=== PATIENT | male | born 1960 | race Two or more races ===

== ENCOUNTER → 2016-11-22 | Outpatient (CLI) | payer OTHER ==
[2016-11-22 12:26] LABS: HEMATOCRIT 43.9 % (37.9-51.0); HEMOGLOBIN 14.7 g/dL (13.5-17.0); HGB HCT DIFFERENCE 0.2; MEAN CORPUSCULAR HEMOGLOBIN 29.9 pg (27.0-33.4); MEAN CORPUSCULAR HGB CONC 33.5 g/dL (32.0-36.0); MEAN CORPUSCULAR VOLUME 89 fl (80-97); RED BLOOD COUNT 4.93 10^6/uL (4.35-5.55); RED CELL DISTRIBUTION WIDTH 13.3 % (11.5-14.0); WHITE BLOOD COUNT 5.7 10^3/uL (4.0-10.5)
[2016-11-22 12:47] LABS: APPEARANCE,URINE CLEAR; BILIRUBIN,URINE NEGATIVE (NEGATIVE); GLUCOSE, URINE NEGATIVE (NEGATIVE); KETONES,URINE NEGATIVE (NEGATIVE); LEUKOCYTE ESTERASE,URINE NEGATIVE (NEGATIVE); NITRITE,URINE NEGATIVE (NEGATIVE); PROTEIN,URINE NEGATIVE (NEGATIVE); URINE SPECIFIC GRAVITY 1.031
[2016-11-22 12:50] LABS: ANION GAP 10 (5-19); BLOOD UREA NITROGEN 26 mg/dL (7-20); CALCIUM 9.3 mg/dL (8.4-10.2); CARBON DIOXIDE 24 mmol/L (22-30); CHLORIDE 109 mmol/L (98-107); CREATININE RESULT 0.98 mg/dL (0.52-1.25); GLUCOSE 104 mg/dL (75-110); POTASSIUM 4.2 mmol/L (3.6-5.0); SODIUM 143.2 mmol/L (137-145)
--- NOTE | 2016-11-22 20:01 | EKG REPORT ---
SEVERITY:- ABNORMAL ECG - SINUS RHYTHM FIRST DEGREE AV BLOCK ABNRM R PROG, CONSIDER ASMI OR LEAD PLACEMENT NONSPECIFIC T ABNORMALITIES, INFERIOR LEADS : Confirmed by: Giselle Galloway 22-Nov-2016 20:00:59
== END ==
LOC: OD 10:56
PROVIDERS: ATTEND Orthopaedic Surgery
DX: Z01.810 Encounter for preprocedural cardiovascular examination (principal); Z01.811 Encounter for preprocedural respiratory examination; Z01.818 Encounter for other preprocedural examination; Z79.899 Other long term (current) drug therapy; M17.12 Unilateral primary osteoarthritis, left knee
CPT/HCPCS: 36415; 71020; 80048; 81001; 85027; 93005; 93010

== ENCOUNTER → 2017-03-03 | Outpatient (CLI) | payer OTHER ==
[2017-03-03 11:14] LABS: APPEARANCE,URINE CLEAR; BILIRUBIN,URINE NEGATIVE (NEGATIVE); GLUCOSE, URINE NEGATIVE (NEGATIVE); KETONES,URINE NEGATIVE (NEGATIVE); LEUKOCYTE ESTERASE,URINE NEGATIVE (NEGATIVE); NITRITE,URINE NEGATIVE (NEGATIVE); PROTEIN,URINE NEGATIVE (NEGATIVE); URINE SPECIFIC GRAVITY 1.025; UROBILINOGEN,URINE NEGATIVE mg/dL (<2.0)
[2017-03-03 11:16] LABS: ABSOLUTE EOSINOPHILS # (AUTO) 0.2 10^3/uL (0.0-0.6); ABSOLUTE LYMPHOCYTES (AUTO) 1.1 10^3/uL (0.5-4.7); ABSOLUTE MONOCYTES (AUTO) 0.4 10^3/uL (0.1-1.4); ABSOLUTE NEUT (AUTO) 3.5 10^3/uL (1.7-8.2); BASOPHILS % (AUTO) 0.9 % (0-2); EOSINOPHILS % (AUTO) 4.8 % (0-6); HEMATOCRIT 45.2 % (37.9-51.0); HEMOGLOBIN 15.1 g/dL (13.5-17.0); HGB HCT DIFFERENCE 0.1; LYMPHOCYTES % (AUTO) 20.9 % (13-45); MEAN CORPUSCULAR HEMOGLOBIN 29.7 pg (27.0-33.4); MEAN CORPUSCULAR HGB CONC 33.4 g/dL (32.0-36.0); MEAN CORPUSCULAR VOLUME 89 fl (80-97); MONOCYTES % (AUTO) 6.7 % (3-13); RED CELL DISTRIBUTION WIDTH 13.7 % (11.5-14.0); SEGMENTED NEUTROPHILS % (AUTO) 66.7 % (42-78); WHITE BLOOD COUNT 5.2 10^3/uL (4.0-10.5)
[2017-03-03 11:37] LABS: ANION GAP 10 (5-19); BLOOD UREA NITROGEN 24 mg/dL (7-20); CALCIUM 9.3 mg/dL (8.4-10.2); CARBON DIOXIDE 26 mmol/L (22-30); CHLORIDE 106 mmol/L (98-107); CREATININE RESULT 0.76 mg/dL (0.52-1.25); GLUCOSE 86 mg/dL (75-110); POTASSIUM 4.7 mmol/L (3.6-5.0); SODIUM 142.2 mmol/L (137-145)
--- NOTE | 2017-03-04 08:48 | EKG REPORT ---
SEVERITY:- ABNORMAL ECG - SINUS RHYTHM FIRST DEGREE AV BLOCK PROBABLE INFERIOR INFARCT, AGE INDETERMINATE : Confirmed by: Giselle Galloway 04-Mar-2017 08:47:19
== END ==
LOC: OD 10:15
PROVIDERS: ATTEND Orthopaedic Surgery
DX: Z01.810 Encounter for preprocedural cardiovascular examination (principal); Z01.812 Encounter for preprocedural laboratory examination; Z01.818 Encounter for other preprocedural examination
CPT/HCPCS: 36415; 80048; 81001; 85025; 93005; 93010

== ENCOUNTER 2017-05-23 05:27 | Inpatient (IN) | payer OTHER ==
--- NOTE | 2017-03-14 13:02 | RADIOLOGY REPORT (SQ) ---
EXAM DESCRIPTION: CHEST PA/LATERAL COMPLETED DATE/TIME: 03/14/2017 11:41 am REASON FOR STUDY: PRE OP COMPARISON: November 2016 EXAM PARAMETERS: NUMBER OF VIEWS: two views TECHNIQUE: Digital Frontal and Lateral radiographic views of the chest acquired. RADIATION DOSE: NA LIMITATIONS: none FINDINGS: LUNGS AND PLEURA: No opacities, masses or pneumothorax. No pleural effusion. MEDIASTINUM AND HILAR STRUCTURES: No masses or contour abnormalities. HEART AND VASCULAR STRUCTURES: Heart normal size. No evidence for failure. BONES: No acute findings. HARDWARE: None in the chest. OTHER: No other significant finding. IMPRESSION: NO SIGNIFICANT RADIOGRAPHIC FINDING IN THE CHEST. TECHNICAL DOCUMENTATION: JOB ID: [id number] [employer]- All Rights Reserved
[2017-05-20 10:24] LABS: APPEARANCE,URINE CLEAR; BILIRUBIN,URINE NEGATIVE (NEGATIVE); GLUCOSE, URINE NEGATIVE (NEGATIVE); KETONES,URINE NEGATIVE (NEGATIVE); LEUKOCYTE ESTERASE,URINE NEGATIVE (NEGATIVE); NITRITE,URINE NEGATIVE (NEGATIVE); PROTEIN,URINE NEGATIVE (NEGATIVE); URINE SPECIFIC GRAVITY 1.028; UROBILINOGEN,URINE NEGATIVE mg/dL (<2.0)
[2017-05-20 11:03] LABS: ABSOLUTE EOSINOPHILS # (AUTO) 0.3 10^3/uL (0.0-0.6); ABSOLUTE LYMPHOCYTES (AUTO) 1.1 10^3/uL (0.5-4.7); ABSOLUTE MONOCYTES (AUTO) 0.4 10^3/uL (0.1-1.4); BASOPHILS % (AUTO) 0.8 % (0-2); EOSINOPHILS % (AUTO) 5.9 % (0-6); HEMATOCRIT 39.2 % (37.9-51.0); HEMOGLOBIN 12.9 g/dL (13.5-17.0); HGB HCT DIFFERENCE -0.5; LYMPHOCYTES % (AUTO) 23.1 % (13-45); MEAN CORPUSCULAR HEMOGLOBIN 27.7 pg (27.0-33.4); MEAN CORPUSCULAR HGB CONC 32.8 g/dL (32.0-36.0); MEAN CORPUSCULAR VOLUME 85 fl (80-97); MONOCYTES % (AUTO) 8.2 % (3-13); RED BLOOD COUNT 4.65 10^6/uL (4.35-5.55); RED CELL DISTRIBUTION WIDTH 14.5 % (11.5-14.0); WHITE BLOOD COUNT 4.9 10^3/uL (4.0-10.5)
[2017-05-20 11:27] LABS: ANION GAP 11 (5-19); BLOOD UREA NITROGEN 14 mg/dL (7-20); CARBON DIOXIDE 26 mmol/L (22-30); CHLORIDE 105 mmol/L (98-107); GLUCOSE 66 mg/dL (75-110); POTASSIUM 4.4 mmol/L (3.6-5.0); SODIUM 141.5 mmol/L (137-145)
--- NOTE | 2017-05-20 18:38 | EKG REPORT ---
SEVERITY:- NORMAL ECG - SINUS RHYTHM : Confirmed by: Gadiel Manzano MD 20-May-2017 18:38:04
[~2017-05-23 05:27] MED LIST: BUPIVACAINE INJ/PF LIPOSOME/PF 266 MG/20 ML SDV IJ PRN; CEFAZOLIN INJ 1 GM VIAL IV PRN; IBUPROFEN 800 MG/NS 250 ML IV PRN; LACTATED RINGERS 1000 ML IV PRN; LANSOPRAZOLE 15 MG TAB.RAP.DR PO PRN; OXYCODONE HCL SR 10 MG TABLET PO PRN; SCOPOLAMINE HYDROBROMIDE 1.5 MG PATCH.TD72 TOP PRN; VANCOMYCIN HCL 1,000 MG in DEXTROSE 5%-WATER 250 ML IV PRN
[2017-05-23] MEDS ORDERED: THROMBIN (BOVINE) 5000 UNIT EPITAXIS KIT ONE (06:47)
[2017-05-23] MEDS ORDERED: THROMBIN (BOVINE) TOPICAL 20000 UNIT VIAL ONE (06:47)
[2017-05-23] MEDS ORDERED: BUPIVACAINE INJ/PF LIPOSOME/PF 266 MG/20 ML SDV ONE (06:48)
[2017-05-23] MEDS ORDERED: MIDAZOLAM 2 MG/2 ML INJ ONE (07:11)
[2017-05-23] MEDS ORDERED: FENTANYL CITRATE INJ/PF 250 MCG/5 ML AMPULE ONE (07:11)
[2017-05-23] MEDS ORDERED: TRANEXAMIC ACID INJ/PF 1,000 MG/10 ML SDV IV ONE ×3 (07:11→10:30)
[2017-05-23] MEDS ORDERED: PROPOFOL INJ 200 MG/20 ML VIAL IV ONE (07:11)
[2017-05-23] MEDS ORDERED: FENTANYL CITRATE INJ/PF 100 MCG/2 ML AMPUL IV PRN ×3 (07:59)
[2017-05-23] MEDS ORDERED: MORPHINE SULFATE 10 MG/ML INJ IV PRN ×3 (07:59→08:38)
[2017-05-23] MEDS ORDERED: PROMETHAZINE HCL INJ 25 MG/1 ML VIAL IV PRN ×2 (07:59)
[2017-05-23] MEDS ORDERED: MEPERIDINE HCL/PF INJ 25 MG/1 ML DISP.SYRIN IV PRN (07:59)
[2017-05-23] MEDS ORDERED: OXYCODONE-ACETAMINOPHEN 5-325 MG TABLET PO PRN ×2 (07:59)
[2017-05-23] MEDS ORDERED: DIPHENHYDRAMINE HCL 50 MG/ML VIAL IV PRN ×2 (07:59→08:38)
[2017-05-23] MEDS ORDERED: MORPHINE SULFATE 10 MG/ML INJ IM PRN (08:38)
[2017-05-23] MEDS ORDERED: RINGERS SOLUTION,LACTATED 1,000 ML IV PRN (08:38)
[2017-05-23] MEDS ORDERED: OXYCODONE HCL IR 5 MG TABLET PO PRN (08:38)
[2017-05-23] MEDS ORDERED: ZOLPIDEM TARTRATE 5 MG TABLET PO PRN (08:38)
[2017-05-23] MEDS ORDERED: ONDANSETRON 4 MG TAB.RAPDIS PO PRN (08:38)
[2017-05-23] MEDS ORDERED: ACETAMINOPHEN 325 MG TABLET PO PRN (08:38)
[2017-05-23] MEDS ORDERED: ONDANSETRON HCL INJ/PF 4 MG/2 ML SDV IV PRN (08:38)
[2017-05-23] MEDS ORDERED: MAG HYDROX/AL HYDROX/SIMETH SUSP 30 ML UDCUP PO PRN (08:38)
--- NOTE | 2017-05-23 08:38 | Operative Report ---
Operative Report DATE OF SURGERY: 05/23/17 PREOPERATIVE DIAGNOSIS: Left knee arthritis OPERATION: Left knee arthroplasty SURGEON: NIKKI SCOTT 1ST SOIL CHECKER: AFSHIN GUZMAN ANESTHESIA: Spinal TISSUE REMOVED OR ALTERED: Bone to pathology ESTIMATED BLOOD LOSS: 100 PROCEDURE: Implants used: Femur: Jose triathlon #6 CR femur Tibia: 6 tibia Tibial liner: 9 mm CS insert Patella: 38 mm oval patella Procedure with the patient supine on the operating table the left the limb is prepped and draped in a sterile fashion. The limb was elevated for exsanguination and the tourniquet inflated to 280 torr. A standard midline median parapatellar approach the knee is taken. Access is gained to the femoral canal through the intercondylar notch. Intramedullary alignment instrumentation used to resect 10 mm of distal femur in 5 of valgus. Sizing guide indicated a size 6 femur. Appropriate cutting jig is then used to fashion anterior posterior and chamfer cuts. A trial reduction femurs performed and this is judged to be adequate. Attention was next turned to the tibia. Using an extra medullary alignment system 9 millimeters was resected off the lateral tibial plateau. This is sized to a size 6 tibia. A trial reduction was now performed with a 6 femur and a 6 tibia using a 9 millimeters spacer. It is full extension and central patellofemoral tracking. The articular surface the patella was next resected using an oscillating saw. All trial implants were removed. Polymethylmethacrylate is mixed and used to cement the above implants in place. On adequate curing the cement excess cement was removed the tourniquet was deflated hemostasis obtained the wound is then closed in layers using interrupted Vicryl followed by yue. A sterile compressive dressing was applied and the patient returned to recovery room in satisfactory condition.
--- NOTE | 2017-05-23 10:18 | RADIOLOGY REPORT (SQ) ---
EXAM DESCRIPTION: KNEE LEFT 2 VIEWS COMPLETED DATE/TIME: 05/23/2017 9:33 am REASON FOR STUDY: Post OP -Long Cassette in PACU M17.12 UNILATERAL PRIMARY OSTEOARTHRITIS, LEFT KNE E COMPARISON: None. NUMBER OF VIEWS: 2 view(s). TECHNIQUE: Digital radiographic images of the left knee post-procedure. LIMITATIONS: None. FINDINGS: BONES: No worrisome or unexpected findings post-procedure. DEVICE: Patient is status post left total knee replacement. The prosthesis appears well seated in th e distal femur and proximal tibia in the projections obtained. SOFT TISSUES: No worrisome findings. Expected postoperative soft tissue changes. IMPRESSION: SATISFACTORY POSTOPERATIVE LEFT KNEE. TECHNICAL DOCUMENTATION: JOB ID: [id number] [employer]- All Rights Reserved
[2017-05-23] MEDS ORDERED: GLYCOPYRROLATE INJ 0.4 MG/2 ML VIAL ONE (11:59)
[2017-05-23] MEDS ORDERED: ONDANSETRON HCL INJ/PF 4 MG/2 ML SDV ONE (11:59)
[2017-05-23] MEDS: IBUPROFEN 800 MG in NORMAL SALINE 250 ML IV SCH ×2 (14:21→22:53)
[2017-05-23] MEDS: MORPHINE SULFATE 10 MG/ML INJ IV PRN ×2 (14:22→20:55)
[2017-05-23] MEDS: SENNOSIDES/DOCUSATE 8.6-50 MG 1 EACH TABLET PO SCH (17:42)
[2017-05-23] MEDS: OXYCODONE HCL SR 10 MG TABLET PO SCH (17:42)
[2017-05-23] MEDS ORDERED: VANCOMYCIN HCL 1,000 MG in DEXTROSE 5%-WATER 250 ML IV ONE (21:00)
[2017-05-23] MEDS ORDERED: RIVAROXABAN 10 MG TABLET PO SCH (22:00)
[2017-05-23] MEDS: PREGABALIN 75 MG CAPSULE PO SCH (22:53)
[2017-05-24] MEDS: IBUPROFEN 800 MG in NORMAL SALINE 250 ML IV SCH (05:19)
[2017-05-24] MEDS: OXYCODONE HCL SR 10 MG TABLET PO SCH (05:19)
[2017-05-24] MEDS ORDERED: LANSOPRAZOLE 30 MG TAB.RAP.DR PO SCH (06:00)
[2017-05-24 06:20] LABS: HEMATOCRIT 35.1 % (37.9-51.0); HEMOGLOBIN 11.7 g/dL (13.5-17.0); MEAN CORPUSCULAR HEMOGLOBIN 27.7 pg (27.0-33.4); MEAN CORPUSCULAR HGB CONC 33.3 g/dL (32.0-36.0); MEAN CORPUSCULAR VOLUME 83 fl (80-97); RED BLOOD COUNT 4.23 10^6/uL (4.35-5.55); RED CELL DISTRIBUTION WIDTH 14.4 % (11.5-14.0); WHITE BLOOD COUNT 7.2 10^3/uL (4.0-10.5)
[2017-05-24 06:31] LABS: ANION GAP 7 (5-19); BLOOD UREA NITROGEN 12 mg/dL (7-20); CALCIUM 8.3 mg/dL (8.4-10.2); CARBON DIOXIDE 25 mmol/L (22-30); CHLORIDE 103 mmol/L (98-107); CREATININE RESULT 0.75 mg/dL (0.52-1.25); GLUCOSE 129 mg/dL (75-110); SODIUM 134.8 mmol/L (137-145)
--- NOTE | 2017-05-24 06:56 | PDOC DISCHARGE SUMMARY ---
General - Admit/Disc Date/PCP Admission Date/Primary Care Provider: 05/23/17 05:27 MIGUELANGEL MCCONNELL III, MD Discharge Date: 05/24/17 - Additional Information Resuscitation Status: Full Code Discharge Diet: As Tolerated, Regular Discharge Activity: Activity As Tolerated, No Driving, No tub bath Home Medications: Amoxicillin 500 mg PO BID 05/20/17 Clarithromycin [Biaxin 500 mg Tablet] 1 tab PO Q12 05/20/17 Omeprazole Magnesium [Prilosec Otc] 20 mg PO DAILY 05/20/17 Rivaroxaban [Xarelto 10 mg Tablet] 10 mg PO QHS tablet 05/24/17 History of Present Illness History of Present Illness: RHEA HERNADEZ is a 56 year old male progressive left knee pain and functional disability secondary osteoarthritis. Patient is admitted for elective left knee arthroplasty. Hospital Course Hospital Course: Patient is admitted through the operating room where he undergoes uncomplicated left knee arthroplasty. Is returned to the floor in satisfactory condition. He ambulates 350 feet on the day of surgery with physical therapy. His dressing is changed on postop day 1. The underlying picot dressing is clean dry and intact. There is minimal pedal edema. Distal neurovascular examination is intact. Physical Exam Vital Signs: Temp Pulse Resp BP Pulse Ox 37.1 C 93 17 104/73 94 05/24/17 03:53 05/24/17 03:53 05/24/17 03:53 05/24/17 03:53 05/24/17 03:53 Intake & Output 05/22/17 05/23/17 05/24/17 06:59 06:59 06:59 Intake Total 0 7603 Output Total 4045 Balance 0 3558 Weight 83.91 kg General appearance: PRESENT: no acute distress Head exam: PRESENT: normocephalic Respiratory exam: PRESENT: unlabored Cardiovascular exam: PRESENT: RRR Pulses: PRESENT: +1 pedal pulses bilateral Vascular exam: PRESENT: normal capillary refill GI/Abdominal exam: PRESENT: soft Rectal exam: PRESENT: deferred Extremities exam: PRESENT: other - Left knee picot dressing is clean dry and intact. Distal neurovascular examination is intact. Neurological exam: PRESENT: alert, awake, oriented to person, oriented to place , oriented to time, oriented to situation. ABSENT: motor sensory deficit Psychiatric exam: PRESENT: appropriate affect, normal mood. ABSENT: homicidal ideation, suicidal ideation Skin exam: PRESENT: dry, intact, warm. ABSENT: cyanosis, rash Results Laboratory Results: 05/24/17 05:36 05/24/17 05:36 05/24/17 05/24/17 05:36 05:36 WBC 7.2 RBC 4.23 L Hgb 11.7 L Hct 35.1 L MCV 83 MCH 27.7 MCHC 33.3 RDW 14.4 H Plt Count 278 Sodium 134.8 L Potassium 4.0 Chloride 103 Carbon Dioxide 25 Anion Gap 7 BUN 12 Creatinine 0.75 Est GFR ( Amer) > 60 Est GFR (Non-Af Amer) > 60 Glucose 129 H Calcium 8.3 L Impressions: Chest X-Ray 03/14/17 11:19 IMPRESSION: NO SIGNIFICANT RADIOGRAPHIC FINDING IN THE CHEST. Knee X-Ray 05/23/17 08:39 IMPRESSION: SATISFACTORY POSTOPERATIVE LEFT KNEE. Status: Imported from PACS Plan Discharge Plan: Patient to be discharged home with home health nursing, home health physical therapy, wheeled walker, bedside commode. Visiting nurse service to change left knee picot dressing on postop day 7 and replaced with an OpSite. Follow- up will be with Dr. Craig and [facility] for surgery in 2 weeks for staple removal.
[2017-05-24] MEDS: SENNOSIDES/DOCUSATE 8.6-50 MG 1 EACH TABLET PO SCH (09:08)
[2017-05-24] MEDS: PREGABALIN 75 MG CAPSULE PO SCH (09:08)
[2017-05-24] MEDS ORDERED: PRENATAL VITAMIN W-O CA NO5/FE FUMARATE/FA CAPSULE PO SCH (10:00)
[2017-05-24 11:17] VITALS: BP 101/67
== END 2017-05-24 11:55 | disposition home health service (06) | DRG 470 ==
LOC: INOR 05:27 → 4S 10:32
PROVIDERS: ADMIT Orthopaedic Surgery; ATTEND Orthopaedic Surgery
PROC: 0SRD0J9 Replacement of Left Knee Joint with Synthetic Substitute, Cemented, Open Approach (ICD-10-PCS; principal; 2017-05-23 07:30)
DX: M17.12 Unilateral primary osteoarthritis, left knee (principal); Z83.3 Family history of diabetes mellitus; Z80.9 Family history of malignant neoplasm, unspecified
CPT/HCPCS: 01402; 36415; 71020; 80048; 81001; 85025; 85027; 88305; 88311; 93005; 93010; 94799; C2625; C9290; J0690; J1741; J2250; J2270; J2405; J2704; J3010; J3370; J3490; J7050; J7060

== ENCOUNTER 2017-05-27 04:53 | Emergency (ER) | payer OTHER ==
[2017-05-27] MEDS ORDERED: HYDROMORPHONE HCL INJ/PF 2 MG/ML AMPULE IV ONE (05:18)
[2017-05-27] MEDS ORDERED: NORMAL SALINE 500 ML IV ONE (05:18)
--- NOTE | 2017-05-27 05:18 | ER Document Report ---
ED Medical Screen (RME) - General Chief Complaint: Post Surgical Pain Stated Complaint: SWEELING AND PAIN IN LEG Time Seen by Provider: 05/27/17 05:06 TRAVEL OUTSIDE OF THE [place] IN LAST 30 DAYS: Yes - Jamie Hansonpilar 05/12/17 COUNTRY TRAVELED TO/FROM: [place] - [facility] Notes: 05/27/17 05:15 56-year-old male underwent left total knee replacement by Dr. Craig on Tuesday, May 23 which was uneventful. He has noticed increased swelling and pain of the left lower extremity with redness that is becoming more proximal as well having more distal swelling and redness. He has no history of diabetes. He has been on antibiotics for H pylori approximately 1 week beforehand. No chest pain or breathing difficulty. He has noted some serous drainage as well laterally from outside the dressing. No fever or other systemic symptoms. Patient is currently taking Xarelto. Of note, the patient states she has not had a bowel movement since the day prior to surgery. Brief exam shows diffuse edema extending from the knee distally and proximally with warmth and erythema extending toward the proximal thigh region as well. - Related Data Allergies/Adverse Reactions: No Known Allergies Allergy (Unverified 12/07/16 12:51) Past Medical History - Past Medical History Cardiac Medical History: Denies: Hx Pulmonary Embolism Pulmonary Medical History: Reports: Hx Sleep Apnea - mild, has CPAP doesn't use Denies: Hx Asthma, Hx Bronchitis, Hx COPD, Hx Pneumonia, Hx Respiratory Failure, Hx Tuberculosis Renal/ Medical History: Denies: Hx Benign Prostatic Hyperplasia, Hx End Stage Renal Disease, Hx Kidney Stones, Hx Peritoneal Dialysis Malignancy Medical History: Denies Hx Lung Cancer GI Medical History: Denies: Hx Crohn's Disease, Hx Gastroesophageal Reflux Disease, Hx Hiatal Hernia, Hx Irritable Bowel, Hx Liver Failure, Hx Ulcer Musculoskeltal Medical History: Reports Hx Arthritis - osteo, Denies Hx Fibromyalgia, Denies Hx Muscular Dystrophy Traumatic Medical History: Denies: Hx Fractures Past Surgical History: Reports: Hx Herniorrhaphy - umbilical, right groin with mesh. Denies: Hx Appendectomy, Hx Bowel Surgery, Hx Cholecystectomy, Hx Colostomy, Hx Coronary Artery Bypass Graft, Hx Gastric Bypass Surgery, Hx Pacemaker, Hx Tonsillectomy Physical Exam - Vital signs Vitals: Temp Pulse Resp BP Pulse Ox 98 F 109 H 20 125/81 93 08/25/17 04:54 05/27/17 04:54 05/27/17 04:54 05/27/17 04:54 05/27/17 04:54 Course - Vital Signs Vital signs: Temp Pulse Resp BP Pulse Ox 98 F 109 H 20 125/81 93 05/27/17 04:54 05/27/17 04:54 05/27/17 04:54 05/27/17 04:54 05/27/17 04:54
--- NOTE | 2017-05-27 07:41 | ER Document Report ---
ED General - General Chief Complaint: Post Surgical Pain Stated Complaint: SWEELING AND PAIN IN LEG Time Seen by Provider: 05/27/17 05:06 TRAVEL OUTSIDE OF THE [place] IN LAST 30 DAYS: Yes - Lazaro Hanson 05/12/17 COUNTRY TRAVELED TO/FROM: [facility] Patient complains to provider of: Left leg swelling Notes: Patient coming in postop day 5 from knee replacement surgery states increased swelling and pain to the left knee. Also states increased redness and some mild drainage. Patient denies any other injuries to his leg states otherwise at this time his pain is controlled denies any fevers chills or night sweats. - Related Data Allergies/Adverse Reactions: No Known Allergies Allergy (Unverified 12/07/16 12:51) Past Medical History - Social History Smoking Status: Unknown if Ever Smoked Family History: Reviewed & Not Pertinent Patient has suicidal ideation: No Patient has homicidal ideation: No - Past Medical History Cardiac Medical History: Denies: Hx Pulmonary Embolism Pulmonary Medical History: Reports: Hx Sleep Apnea - mild, has CPAP doesn't use Denies: Hx Asthma, Hx Bronchitis, Hx COPD, Hx Pneumonia, Hx Respiratory Failure, Hx Tuberculosis Renal/ Medical History: Denies: Hx Benign Prostatic Hyperplasia, Hx End Stage Renal Disease, Hx Kidney Stones, Hx Peritoneal Dialysis Malignancy Medical History: Denies Hx Lung Cancer GI Medical History: Denies: Hx Crohn's Disease, Hx Gastroesophageal Reflux Disease, Hx Hiatal Hernia, Hx Irritable Bowel, Hx Liver Failure, Hx Ulcer Musculoskeltal Medical History: Reports Hx Arthritis - osteo, Denies Hx Fibromyalgia, Denies Hx Muscular Dystrophy Traumatic Medical History: Denies: Hx Fractures Past Surgical History: Reports: Hx Herniorrhaphy - umbilical, right groin with mesh. Denies: Hx Appendectomy, Hx Bowel Surgery, Hx Cholecystectomy, Hx Colostomy, Hx Coronary Artery Bypass Graft, Hx Gastric Bypass Surgery, Hx Pacemaker, Hx Tonsillectomy Review of Systems - Review of Systems Constitutional: No symptoms reported EENT: No symptoms reported Cardiovascular: No symptoms reported Respiratory: No symptoms reported Gastrointestinal: No symptoms reported Genitourinary: No symptoms reported Male Genitourinary: No symptoms reported Musculoskeletal: Leg swelling Skin: No symptoms reported Hematologic/Lymphatic: No symptoms reported Neurological/Psychological: No symptoms reported Physical Exam - Vital signs Vitals: Temp Pulse Resp BP Pulse Ox 98 F 109 H 20 125/81 93 05/27/17 04:54 05/27/17 04:54 05/27/17 04:54 05/27/17 04:54 05/27/17 04:54 Interpretation: Normal - General General appearance: Appears well, Alert - HEENT Head: Normocephalic, Atraumatic Eyes: Normal Pupils: PERRL - Respiratory Respiratory status: No respiratory distress Chest status: Nontender Breath sounds: Normal Chest palpation: Normal - Cardiovascular Rhythm: Regular Heart sounds: Normal auscultation Murmur: No - Abdominal Inspection: Normal Distension: No distension Bowel sounds: Normal Tenderness: Nontender Organomegaly: No organomegaly - Back Back: Normal, Nontender - Extremities General upper extremity: Normal inspection, Nontender, Normal color, Normal ROM , Normal temperature General lower extremity: Nontender, Other - Right leg unaffected. Patient's left leg postsurgical with dressing intact slight serosanguineous drainage no purulent drainage is seen there is some mild erythema from the knee up to the mid thigh the medial region.. No: Normal inspection - Neurological Neuro grossly intact: Yes Cognition: Normal Orientation: AAOx4 Hoffman Coma Scale Eye Opening: Spontaneous Hoffman Coma Scale Verbal: Oriented Hoffman Coma Scale Motor: Obeys Commands Hoffman Coma Scale Total: 15 Speech: Normal Motor strength normal: LUE, RUE, LLE, RLE Sensory: Normal - Psychological Associated symptoms: Normal affect, Normal mood - Skin Skin Temperature: Warm Skin Moisture: Dry Skin Color: Normal Course - Re-evaluation Re-evalutation: 05/27/17 13:26 Doppler is negative lab work shows no leukocytosis or bandemia. Discussed with orthopedics physical education professor will establish the patient with a follow-up outpatient appointment either today or Tuesday. Agrees with discharge - Vital Signs Vital signs: Temp Pulse Resp BP Pulse Ox 97.8 F 98 16 129/85 H 98 05/27/17 11:05 05/27/17 11:05 05/27/17 11:05 05/27/17 11:05 05/27/17 11:05 - Laboratory Result Diagrams: 05/27/17 07:20 05/27/17 07:20 Laboratory results interpreted by me: 05/27/17 05/27/17 07:20 07:20 RBC 3.83 L Hgb 10.6 L Hct 31.2 L RDW 14.5 H Lymphocytes % 11.3 L Sodium 136.2 L Calcium 8.2 L Discharge - Discharge Clinical Impression: Left leg swelling Condition: Good Disposition: HOME, SELF-CARE Instructions: Dependent Edema ([facility]) Additional Instructions: Please continue to elevate your leg. I discussed her case with the orthopedic group there will call you with a follow-up appointment which may be today or Tuesday. Return to ER if you develop fevers or worsening symptoms Referrals: LIU MCCONNELL MD [Primary Care Provider] - Follow up as needed
[2017-05-27 07:42] LABS: ABSOLUTE EOSINOPHILS # (AUTO) 0.1 10^3/uL (0.0-0.6); ABSOLUTE LYMPHOCYTES (AUTO) 0.9 10^3/uL (0.5-4.7); ABSOLUTE MONOCYTES (AUTO) 0.8 10^3/uL (0.1-1.4); BASOPHILS % (AUTO) 0.6 % (0-2); EOSINOPHILS % (AUTO) 1.7 % (0-6); HEMATOCRIT 31.2 % (37.9-51.0); HEMOGLOBIN 10.6 g/dL (13.5-17.0); HGB HCT DIFFERENCE 0.6; LYMPHOCYTES % (AUTO) 11.3 % (13-45); MEAN CORPUSCULAR HEMOGLOBIN 27.7 pg (27.0-33.4); MEAN CORPUSCULAR VOLUME 82 fl (80-97); MONOCYTES % (AUTO) 10.3 % (3-13); RED BLOOD COUNT 3.83 10^6/uL (4.35-5.55); RED CELL DISTRIBUTION WIDTH 14.5 % (11.5-14.0); SEGMENTED NEUTROPHILS % (AUTO) 76.1 % (42-78); WHITE BLOOD COUNT 7.8 10^3/uL (4.0-10.5)
[2017-05-27 07:57] LABS: ANION GAP 7 (5-19); BLOOD UREA NITROGEN 11 mg/dL (7-20); CALCIUM 8.2 mg/dL (8.4-10.2); CARBON DIOXIDE 29 mmol/L (22-30); CHLORIDE 100 mmol/L (98-107); CREATININE RESULT 0.73 mg/dL (0.52-1.25); GLUCOSE 109 mg/dL (75-110); POTASSIUM 3.7 mmol/L (3.6-5.0); SODIUM 136.2 mmol/L (137-145)
--- NOTE | 2017-05-27 09:34 | RADIOLOGY REPORT (SQ) ---
EXAM DESCRIPTION: VENOUS UNILATERAL LOWER COMPLETED DATE/TIME: 05/27/2017 9:22 am REASON FOR STUDY: LLE Pain and swelling post TKR COMPARISON: None. TECHNIQUE: Dynamic and static sharma scale and color images acquired of the left leg venous system. Se lected spectral images acquired with additional compression and augmentation maneuvers. The contralat eral common femoral vein and saphenofemoral junction were also imaged. Images stored on PACS. LIMITATIONS: None. FINDINGS: COMMON FEMORAL: Normal phasicity, compression and augmentation. No visualized echogenic ma terial on sharma scale. No defects on color images. FEMORAL: Normal compression and augmentation. No visualized echogenic material on sharma scale. No defe cts on color images. POPLITEAL: Normal compression, augmentation. No visualized echogenic material on sharma scale. No defec ts on color images. CALF VESSELS: Normal compression, augmentation. No visualized echogenic material on sharma scale. No de fects on color images. GSV and SSV: Normal compression, augmentation. No visualized echogenic material on sharma scale. No def ects on color images. ANY DEEP VENOUS INSUFFICIENCY: Not evaluated. ANY EVIDENCE OF POPLITEAL CYST: No. OTHER: No other significant finding. CONTRALATERAL COMMON FEMORAL VEIN AND SAPHENOFEMORAL JUNCTION: Normal phasicity, compression and augmentation. No visualized echogenic material on sharma scale. No de fects on color images. IMPRESSION: NO EVIDENCE OF DVT OR SVT IN THE LEFT LEG. TECHNICAL DOCUMENTATION: JOB ID: [id number] [employer]- All Rights Reserved
[2017-05-27 11:05] VITALS: BP 129/85
== END 2017-05-27 11:05 | disposition home or self-care (01) ==
LOC: ER 04:53
DX: M79.89 Other specified soft tissue disorders (principal); M25.562 Pain in left knee; Z96.652 Presence of left artificial knee joint
CPT/HCPCS: 99284; 96361; 96374; 36415; 87040; 85025; 80048; 93971; J1170; J7040

== ENCOUNTER → 2017-08-30 | Outpatient (CLI) | payer OTHER ==
--- NOTE | 2017-08-30 11:13 | RADIOLOGY REPORT (SQ) ---
EXAM DESCRIPTION: CHEST PA/LATERAL COMPLETED DATE/TIME: 08/30/2017 10:48 am REASON FOR STUDY: PRE OP COMPARISON: 03/14/2017 EXAM PARAMETERS: NUMBER OF VIEWS: two views TECHNIQUE: Digital Frontal and Lateral radiographic views of the chest acquired. RADIATION DOSE: NA LIMITATIONS: none FINDINGS: LUNGS AND PLEURA: No opacities, masses or pneumothorax. No pleural effusion. MEDIASTINUM AND HILAR STRUCTURES: No masses or contour abnormalities. HEART AND VASCULAR STRUCTURES: Heart normal size. No evidence for failure. BONES: No acute findings. HARDWARE: None in the chest. OTHER: No other significant finding. IMPRESSION: NO SIGNIFICANT RADIOGRAPHIC FINDING IN THE CHEST. TECHNICAL DOCUMENTATION: JOB ID: [id number] [employer]- All Rights Reserved
[2017-08-30 11:21] LABS: ABSOLUTE EOSINOPHILS # (AUTO) 0.1 10^3/uL (0.0-0.6); ABSOLUTE LYMPHOCYTES (AUTO) 1.1 10^3/uL (0.5-4.7); ABSOLUTE MONOCYTES (AUTO) 0.3 10^3/uL (0.1-1.4); ABSOLUTE NEUT (AUTO) 3.6 10^3/uL (1.7-8.2); BASOPHILS % (AUTO) 0.8 % (0-2); EOSINOPHILS % (AUTO) 2.2 % (0-6); HEMATOCRIT 43.3 % (37.9-51.0); HEMOGLOBIN 14.3 g/dL (13.5-17.0); LYMPHOCYTES % (AUTO) 21.4 % (13-45); MEAN CORPUSCULAR HEMOGLOBIN 26.6 pg (27.0-33.4); MEAN CORPUSCULAR VOLUME 81 fl (80-97); MONOCYTES % (AUTO) 6.6 % (3-13); PLATELET COUNT 275 10^3/uL (150-450); RED BLOOD COUNT 5.37 10^6/uL (4.35-5.55); RED CELL DISTRIBUTION WIDTH 17.6 % (11.5-14.0); TOTAL CELLS COUNTED % (AUTO) 100 %; WHITE BLOOD COUNT 5.3 10^3/uL (4.0-10.5)
[2017-08-30 11:22] LABS: APPEARANCE,URINE CLEAR; BILIRUBIN,URINE NEGATIVE (NEGATIVE); COLOR,URINE YELLOW; GLUCOSE, URINE NEGATIVE (NEGATIVE); KETONES,URINE NEGATIVE (NEGATIVE); LEUKOCYTE ESTERASE,URINE NEGATIVE (NEGATIVE); NITRITE,URINE NEGATIVE (NEGATIVE); PROTEIN,URINE NEGATIVE (NEGATIVE); URINE SPECIFIC GRAVITY 1.032; UROBILINOGEN,URINE NEGATIVE mg/dL (<2.0)
[2017-08-30 11:50] LABS: ANION GAP 11 (5-19); BLOOD UREA NITROGEN 17 mg/dL (7-20); CALCIUM 9.1 mg/dL (8.4-10.2); CARBON DIOXIDE 28 mmol/L (22-30); CHLORIDE 104 mmol/L (98-107); GLUCOSE 88 mg/dL (75-110); POTASSIUM 4.9 mmol/L (3.6-5.0)
--- NOTE | 2017-08-30 13:21 | EKG REPORT ---
SEVERITY:- ABNORMAL ECG - SINUS RHYTHM FIRST DEGREE AVB. POOR R PROGRESSION ANTERIOR LEADS NONSPECIFIC ST-T CHANGES- INFERIOR LEADS : Confirmed by: Gadiel Manzano MD 30-Aug-2017 13:21:08
== END ==
LOC: OD 10:08
PROVIDERS: ATTEND Orthopaedic Surgery
DX: Z01.818 Encounter for other preprocedural examination (principal); M16.11 Unilateral primary osteoarthritis, right hip
CPT/HCPCS: 36415; 71020; 80048; 81001; 85025; 93005; 93010

== ENCOUNTER 2017-09-12 07:59 | Inpatient (IN) | payer OTHER ==
[~2017-09-12 07:59] MED LIST changes: -BUPIVACAINE INJ/PF LIPOSOME/PF 266 MG/20 ML SDV IJ PRN; +BUPIVACAINE INJ/PF LIPOSOME/PF 266 MG/20 ML SDV INJ PRN; +BUPIVACAINE INJ/PF LIPOSOME/PF 266 MG/20 ML SDV ONE; -CEFAZOLIN INJ 1 GM VIAL IV PRN; +IBUPROFEN 800 MG in NORMAL SALINE 250 ML IV PRN; -IBUPROFEN 800 MG/NS 250 ML IV PRN; +LIDOCAINE 0.5% INJ-PF (5 MG/ML) 50 ML SDV SUBCUT PRN; +ONDANSETRON HCL INJ/PF 4 MG/2 ML SDV IV PRN; -SCOPOLAMINE HYDROBROMIDE 1.5 MG PATCH.TD72 TOP PRN; +THROMBIN (BOVINE) 5000 UNIT EPITAXIS KIT ONE; +THROMBIN (BOVINE) TOPICAL 20000 UNIT VIAL ONE; +TRANEXAMIC ACID INJ/PF 1,000 MG/10 ML SDV IV PRN
[2017-09-12] MEDS ORDERED: CEFAZOLIN INJ 1 GM VIAL ONE (08:17)
[2017-09-12] MEDS ORDERED: FENTANYL CITRATE INJ/PF 100 MCG/2 ML AMPUL ONE (10:13)
[2017-09-12] MEDS ORDERED: MIDAZOLAM 2 MG/2 ML INJ ONE (10:13)
[2017-09-12] MEDS ORDERED: EPHEDRINE SULFATE INJ 50 MG/1 ML AMPULE ONE (10:13)
[2017-09-12] MEDS ORDERED: ACETAMINOPHEN 100 ML IV ONE ×2 (10:14→18:00)
[2017-09-12] MEDS ORDERED: TRANEXAMIC ACID INJ/PF 1,000 MG/10 ML SDV IV ONE ×2 (10:14→14:00)
[2017-09-12] MEDS ORDERED: DEXMEDETOMIDINE INJ 80 MCG/20 ML VIAL IV ONE (10:14)
[2017-09-12] MEDS ORDERED: PROPOFOL INJ 200 MG/20 ML VIAL IV ONE (10:14)
[2017-09-12] MEDS ORDERED: MORPHINE SULFATE 10 MG/ML INJ IV PRN ×4 (11:20→11:55)
[2017-09-12] MEDS ORDERED: MEPERIDINE HCL/PF INJ 25 MG/1 ML DISP.SYRIN IV PRN (11:20)
[2017-09-12] MEDS ORDERED: ONDANSETRON HCL INJ/PF 4 MG/2 ML SDV IV PRN ×3 (11:20→13:00)
[2017-09-12] MEDS ORDERED: DIPHENHYDRAMINE HCL 50 MG/ML VIAL IV PRN ×2 (11:20→11:55)
[2017-09-12] MEDS ORDERED: FENTANYL CITRATE INJ/PF 100 MCG/2 ML AMPUL IV PRN ×3 (11:20)
[2017-09-12] MEDS ORDERED: PROMETHAZINE HCL INJ 25 MG/1 ML VIAL IV PRN ×2 (11:20)
[2017-09-12] MEDS ORDERED: MAG HYDROX/AL HYDROX/SIMETH SUSP 30 ML UDCUP PO PRN ×2 (11:55→12:30)
[2017-09-12] MEDS ORDERED: OXYCODONE HCL IR 5 MG TABLET PO PRN (11:55)
[2017-09-12] MEDS ORDERED: RINGERS SOLUTION,LACTATED 1,000 ML IV PRN (11:55)
[2017-09-12] MEDS ORDERED: ACETAMINOPHEN 325 MG TABLET PO PRN (11:55)
[2017-09-12] MEDS ORDERED: ZOLPIDEM TARTRATE 5 MG TABLET PO PRN (11:55)
[2017-09-12] MEDS ORDERED: ONDANSETRON 4 MG TAB.RAPDIS PO PRN ×2 (11:55→13:00)
--- NOTE | 2017-09-12 11:55 | Operative Report ---
Operative Report DATE OF SURGERY: 09/12/17 PREOPERATIVE DIAGNOSIS: Right hip osteoarthritis OPERATION: Right hip arthroplasty SURGEON: NIKKI SCOTT ANESTHESIA: Spinal TISSUE REMOVED OR ALTERED: Bone to pathology ESTIMATED BLOOD LOSS: 100 PROCEDURE: Implants used: Femur: Jose Accolade 2 size 5 stem Acetabular shell: 58 mm acetabular shell Liner: 36 mm flat cross-link polyethylene liner Head: 36 mm head standard neck The patient is placed in a left lateral decubitus position on the operating table. The right lower extremity and hindquarter is prepped and draped in a sterile fashion. A curvilinear incision was made over the greater trochanter a posterior approach the hip was taken. The femoral head is dislocated and the femoral neck transected using an oscillating saw. Attention was next turned to the acetabulum. Soft tissues cleared off the acetabulum using electrocautery. The acetabulum was then prepared using a series of hemispherical reamers until a 57 millimeters reamer is seated. Subsequently a 58 millimeters Jose titanium hemispherical shell is impacted into position and secured with one screw. A standard flat 36 millimeters cross- link liner is impacted into the shell. Attention was next turned to the femur. Access is gained to the femoral canal using a box osteotome to the piriformis fossa. The femur is then prepared using a series of broaches until a number 5 broach is seated. A trial reduction was now performed using a 36 millimeters head with standard neck. Preoperative leg length was recreated and is excellent anterior posterior stability. A decision was made to proceed with the above construct. All trial implants were removed. The wound is irrigated with pulsed lavage. A number 5 stem is impacted into the femoral canal. A trial reduction was again performed with a 36 mm head and a standard neck. Findings as previously. The hip was dislocated one last time and the final chrome-cobalt head is impacted onto the trunnion. The hip was reduced. Wound is copiously irrigated with pulsed lavage. Sent closed in layers using interrupted Vicryl followed by yue. A sterile dressing is applied and the patient's returned to recovery room in satisfactory patient.
[2017-09-12] MEDS ORDERED: GLYCOPYRROLATE INJ 0.4 MG/2 ML VIAL ONE (12:51)
[2017-09-12] MEDS ORDERED: ONDANSETRON HCL INJ/PF 4 MG/2 ML SDV ONE (12:51)
[2017-09-12] MEDS ORDERED: DEXAMETHASONE SOD PHOSPHATE INJ 4 MG/1 ML VIAL ONE (12:51)
[2017-09-12] MEDS ORDERED: METOCLOPRAMIDE HCL INJ/PF 10 MG/2 ML SDV ONE (12:51)
--- NOTE | 2017-09-12 13:12 | RADIOLOGY REPORT (SQ) ---
EXAM DESCRIPTION: PELVIS AP COMPLETED DATE/TIME: 09/12/2017 1:01 pm REASON FOR STUDY: Post Op Long Cassette in PACU M16.11 UNILATERAL PRIMARY OSTEOARTHRITIS, RIGHT HI P COMPARISON: None. NUMBER OF VIEWS: AP pelvis to include the right proximal femur TECHNIQUE: Digital radiographic images of the right hip post-procedure. LIMITATIONS: None. FINDINGS: BONES: No worrisome or unexpected findings post-procedure. DEVICE: Right total hip replacement with single screw anchoring the acetabular component. SOFT TISSUES: No worrisome findings. Expected postoperative soft tissue changes. IMPRESSION: SATISFACTORY POSTOPERATIVE HIP. TECHNICAL DOCUMENTATION: JOB ID: [id number] [email or web address]- All Rights Reserved
[2017-09-12] MEDS: SENNOSIDES/DOCUSATE 8.6-50 MG 1 EACH TABLET PO SCH (18:16)
[2017-09-12] MEDS: OXYCODONE HCL SR 10 MG TABLET PO SCH (22:10)
[2017-09-12] MEDS: MORPHINE SULFATE 10 MG/ML INJ IM PRN (22:11)
[2017-09-12] MEDS ORDERED: VANCOMYCIN HCL 1,000 MG in DEXTROSE 5%-WATER 250 ML IV ONE (23:55)
[2017-09-13] MEDS: MORPHINE SULFATE 10 MG/ML INJ IM PRN (04:27)
[2017-09-13 05:21] LABS: HEMATOCRIT 35.1 % (37.9-51.0); HEMOGLOBIN 11.5 g/dL (13.5-17.0); HGB HCT DIFFERENCE -0.6; MEAN CORPUSCULAR HEMOGLOBIN 26.8 pg (27.0-33.4); MEAN CORPUSCULAR HGB CONC 32.7 g/dL (32.0-36.0); MEAN CORPUSCULAR VOLUME 82 fl (80-97); RED BLOOD COUNT 4.29 10^6/uL (4.35-5.55); RED CELL DISTRIBUTION WIDTH 17.1 % (11.5-14.0); WHITE BLOOD COUNT 11.8 10^3/uL (4.0-10.5)
[2017-09-13 05:35] LABS: ANION GAP 8 (5-19); BLOOD UREA NITROGEN 12 mg/dL (7-20); CALCIUM 8.2 mg/dL (8.4-10.2); CARBON DIOXIDE 25 mmol/L (22-30); CHLORIDE 103 mmol/L (98-107); CREATININE RESULT 0.65 mg/dL (0.52-1.25); GLUCOSE 123 mg/dL (75-110); POTASSIUM 4.4 mmol/L (3.6-5.0); SODIUM 135.7 mmol/L (137-145)
[2017-09-13] MEDS ORDERED: LANSOPRAZOLE 30 MG TAB.RAP.DR PO SCH (06:00)
--- NOTE | 2017-09-13 06:55 | PDOC DISCHARGE SUMMARY ---
General - Admit/Disc Date/PCP Admission Date/Primary Care Provider: 09/12/17 07:59 MIGUELANGEL MCCONNELL III, MD Discharge Date: 09/13/17 - Discharge Diagnosis (1) Arthritis of right hip Is this a current diagnosis for this admission?: Yes - Additional Information Resuscitation Status: Full Code Discharge Diet: As Tolerated, Regular Discharge Activity: Activity As Tolerated, No Driving, No tub bath, Walk Frequently Home Medications: No Home Medications 09/12/17 History of Present Illness History of Present Illness: RHEA HERNADEZ is a 57 year old male with right hip arthritis who was admitted for elective total right hip arthroplasty. Hospital Course Hospital Course: 57-year-old male who was admitted to the OR and underwent elective and uncomplicated total right hip arthroplasty. He was taken to PACU in satisfactory condition. He was returned to the surgical floor and seen by physical therapy for weightbearing as tolerated and nursing staff for pain control. He made progress with physical therapy ambulating 300 feet independently. He will be discharged home today with home health nursing, home physical therapy, wheeled walker, bedside commode. Physical Exam Vital Signs: Temp Pulse Resp BP Pulse Ox 36.6 C 69 16 96/62 L 97 09/13/17 03:56 09/13/17 03:56 09/13/17 03:56 09/13/17 03:56 09/13/17 03:56 Intake & Output 09/11/17 09/12/17 09/13/17 06:59 06:59 06:59 Intake Total 2990 Output Total 1075 Balance 1915 Weight 84 kg General appearance: PRESENT: no acute distress, well-developed, well-nourished Head exam: PRESENT: atraumatic, normocephalic Respiratory exam: PRESENT: unlabored Pulses: PRESENT: normal dorsalis pedis pul, +2 pedal pulses bilateral Extremities exam: PRESENT: tenderness Additional comments: Patient lying recumbent in hospital bed with right lower extremity in full extension. His OpSite dressing is clean dry and intact. He is still slightly tender to palpation. He has brisk capillary refill to toes on bilateral lower extremities. He has minimal pedal edema. His sensorimotor functions are intact and his distal neurovascular exam is intact. Musculoskeletal exam: PRESENT: ambulatory Additional comments: Patient makes great progress with physical therapy ambulating 300 feet independently. He will continue to work with home physical therapy to improve strength and range of motion of right lower extremity and to improve distance ambulation. Neurological exam: PRESENT: alert, awake, oriented to person, oriented to place , oriented to time, oriented to situation, CN II-XII grossly intact. ABSENT: motor sensory deficit Psychiatric exam: PRESENT: appropriate affect, normal mood. ABSENT: homicidal ideation, suicidal ideation Skin exam: PRESENT: dry, intact, warm. ABSENT: cyanosis, rash Results Laboratory Results: 09/13/17 05:08 09/13/17 05:08 09/12/17 09/13/17 09/13/17 08:24 05:08 05:08 WBC 11.8 H RBC 4.29 L Hgb 11.5 L Hct 35.1 L MCV 82 MCH 26.8 L MCHC 32.7 RDW 17.1 H Plt Count 247 Sodium 135.7 L Potassium 4.4 Chloride 103 Carbon Dioxide 25 Anion Gap 8 BUN 12 Creatinine 0.65 Est GFR ( Amer) > 60 Est GFR (Non-Af Amer) > 60 Glucose 123 H Calcium 8.2 L Blood Type AB POSITIVE Antibody Screen NEGATIVE Impressions: Pelvis X-Ray 09/12/17 11:56 IMPRESSION: SATISFACTORY POSTOPERATIVE HIP. Plan Discharge Plan: 57-year-old male 1 day status post total right hip arthroplasty who will be discharged home today with home health nursing, home physical therapy, wheeled walker, bedside commode. The half-way service will change his OpSite dressing when they see fit i.e. when it is saturated with quentin blood. He will follow-up with Dr. Craig and Henrry GONZALEZ at [facility] for surgery 2 weeks postoperatively for staple removal and reevaluation. Time Spent: Less than 30 Minutes
[2017-09-13 09:06] VITALS: BP 114/72
[2017-09-13] MEDS: SENNOSIDES/DOCUSATE 8.6-50 MG 1 EACH TABLET PO SCH (09:25)
[2017-09-13] MEDS: OXYCODONE HCL SR 10 MG TABLET PO SCH (09:27)
[2017-09-13] MEDS ORDERED: ASPIRIN 81 MG TABLET, ENT COATED PO SCH (10:00)
[2017-09-13] MEDS ORDERED: PRENATAL VITAMIN W DHA CAPSULE PO SCH (10:00)
== END 2017-09-13 10:15 | disposition home or self-care (01) | DRG 470 ==
LOC: INOR 07:59 → 4S 13:02
PROVIDERS: ADMIT Orthopaedic Surgery; ATTEND Orthopaedic Surgery
PROC: 0SR902Z Replacement of Right Hip Joint with Metal on Polyethylene Synthetic Substitute, Open Approach (ICD-10-PCS; principal; 2017-09-12 10:00)
DX: M16.11 Unilateral primary osteoarthritis, right hip (principal); Z96.652 Presence of left artificial knee joint
CPT/HCPCS: 01214; 36415; 72170; 80048; 85027; 86850; 86900; 86901; 88305; 88311; 94799; C1713; C9290; J0131; J0690; J1100; J1741; J2250; J2270; J2405; J2704; J2765; J3010; J3370; J3490; J7050; J7060; J7120; S0119